=== PATIENT | female | born 1960 | race Hispanic/Latino ===

== ENCOUNTER 2020-10-19 13:29 | Emergency (ER) | payer OTHER, SELFPAY ==
[2020-10-19] MEDS ORDERED: SODIUM CHLORIDE 0.9% 1000ML 1,000 ML IV ONE (14:28)
[2020-10-19] MEDS ORDERED: ACETAMINOPHEN-CODEINE 300/30MG TAB ONE (14:28)
[2020-10-19 14:45] LABS: CREATININE 1.2 mg/dL (0.5-1.5); POTASSIUM 4.3 mmol/L (3.5-5.1)
[2020-10-19 14:49] LABS: ALBUMIN 3.5 g/dL (3.5-5.0); BILIRUBIN,TOTAL 0.1 mg/dL (0.2-1.0)
[2020-10-19 14:52] LABS: BASOPHILS % (AUTO) 0.3 % (0.0-5.0); EOSINOPHILS % (AUTO) 3.7 % (0.0-8.0); HEMATOCRIT 36.2 % (36-48); LYMPHOCYTES % (AUTO) 28.5 % (21.0-51.0); MEAN CORPUSCULAR HGB CONC 33.4 g/dL (32.0-36.0); MEAN CORPUSCULAR VOLUME 89.6 fL (79-99); NEUTROPHILS % (AUTO) 62.2 % (40.0-77.0); PLATELET COUNT (AUTO) 271 K/uL (130-400); RED BLOOD CELL COUNT(AUTO) 4.04 MIL/uL (4.00-5.50); RED CELL DISTRIBUTION WIDTH 12.9 % (11.0-15.5); WHITE BLOOD COUNT (AUTO) 9.6 K/uL (4.8-10.8)
[2020-10-19] MEDS ORDERED: IOHEXOL-350 50ML VIAL IV ONE (14:54)
== END 2020-10-19 16:48 | disposition home or self-care (01) ==
LOC: EDH 13:29
DX: R59.0 Localized enlarged lymph nodes (principal); M25.511 Pain in right shoulder; E13.65 Other specified diabetes mellitus with hyperglycemia
CPT/HCPCS: 36415; 70491; 73030; 80053; 85025; 96360; 96361; 99285; J7030; Q9967

== ENCOUNTER 2021-10-24 11:23 | Inpatient (IN) | payer OTHER ==
[~2021-10-24] VITALS: Ht 152.4 cm; Wt 100.6 kg
[2021-10-24] MEDS ORDERED: ACETAMINOPHEN 500 MG TABLET ONE (11:34)
[2021-10-24 12:24] LABS: BASOPHILS % (AUTO) 0.6 % (0.0-5.0); EOSINOPHILS % (AUTO) 0.5 % (0.0-8.0); HEMATOCRIT 41.7 % (36-48); LYMPHOCYTES % (AUTO) 13.8 % (21.0-51.0); MEAN CORPUSCULAR HEMOGLOBIN 28.9 pg (27.0-33.0); MEAN CORPUSCULAR HGB CONC 31.9 g/dL (32.0-36.0); MEAN CORPUSCULAR VOLUME 90.7 fL (79-99); MONOCYTES % (AUTO) 3.4 % (3.0-13.0); NEUTROPHILS % (AUTO) 81.5 % (40.0-77.0); PLATELET COUNT (AUTO) 284 K/uL (130-400); RED CELL DISTRIBUTION WIDTH 14.3 % (11.0-15.5); WHITE BLOOD COUNT (AUTO) 8.3 K/uL (4.8-10.8)
[2021-10-24 12:34] LABS: ALBUMIN 3.7 g/dL (3.5-5.0); BILIRUBIN,TOTAL 0.3 mg/dL (0.2-1.0); CREATININE 3.6 mg/dL (0.5-1.5); TOTAL PROTEIN, SERUM 8.9 g/dL (6.0-8.3)
[2021-10-24 12:46] LABS: CRP QUANTITATIVE 410.4 mg/L (0.00-9.0)
[2021-10-24] MEDS ORDERED: INSULIN HUMULIN R 100 UNIT/ML 3ML SQ ONE (13:00)
[2021-10-24] MEDS ORDERED: POTASSIUM BICARB/CIT AC 25 MEQ TABLET.EFF PO ONE (13:00)
[2021-10-24] MEDS ORDERED: LACTATED RINGERS 1000ML 1,000 ML IV ONE (13:00)
[2021-10-24] MEDS ORDERED: 0.9%NACL 1000ML 1,000 ML IV ONE ×2 (13:01→13:30)
[2021-10-24] MEDS ORDERED: ONDANSETRON 4MG INJ ONE (13:03)
[2021-10-24] MEDS ORDERED: ONDANSETRON 4MG INJ IVP ONE (13:30)
[2021-10-24] MEDS ORDERED: 0.9%NACL 1000ML 1,000 ML IV SCH (14:30)
[2021-10-24] MEDS ORDERED: LACTATED RINGERS 1000ML 1,000 ML IV SCH (14:30)
[2021-10-24 14:40] LABS: APPEARANCE,URINE Cloudy (CLEAR); BILIRUBIN,URINE Negative (NEGATIVE); COLOR,URINE Yellow (YELLOW); GLUCOSE, URINE (UA) 250 mg/dL (NEGATIVE); KETONES,URINE Negative (NEGATIVE); LEUKOCYTE ESTERASE ,URINE Moderate (NEGATIVE); NITRATE,URINE Negative (NEGATIVE); OCCULT BLOOD,URINE Negative (NEGATIVE); PROTEIN,URINE POS 2+ mg/dL (NEGATIVE); UROBILINOGEN,URINE 0.2 mg/dL (0.2-1.0)
[2021-10-24 14:58] LABS: RBC,URINE None Seen /HPF (0-1)
[2021-10-24 14:59] LABS: BACTERIA,URINE Few /HPF (None Seen)
[2021-10-24] MEDS ORDERED: 0.9%NACL 1000ML 909 ML IV ONE (15:00)
[2021-10-24] MEDS: ZOSYN 3.375GM +NS 50ML IV SCH (15:26)
[2021-10-24] MEDS ORDERED: HYDRALAZINE 20MG/ML VIAL IV PRN (15:30)
[2021-10-24] MEDS: 0.9%NACL 1000ML 1,000 ML IV SCH (15:30)
[2021-10-24] MEDS ORDERED: ACETAMINOPHEN 325 MG TAB PO PRN (15:30)
[2021-10-24] MEDS ORDERED: ONDANSETRON 4MG INJ IV PRN (15:30)
[2021-10-24] MEDS ORDERED: LIDOCAINE HCL-MPF 1% 2ML VIAL IV PRN (16:00)
[2021-10-24] MEDS ORDERED: POTASSIUM CHLORIDE 20MEQ/100ML 100 ML IV PRN (16:00)
[2021-10-24] MEDS ORDERED: MAGNESIUM 2GM PREMIX 50ML 50 ML IV PRN (16:00)
[2021-10-24] MEDS ORDERED: POTASSIUM CHLORIDE 10% ELIXIR 20 MEQ/15 ML UDCUP PO PRN (16:00)
[2021-10-24] MEDS: FAMOTIDINE 20MG VIAL IV SCH (16:16)
[2021-10-24 16:22] LABS: HEMOGLOBIN A1C 10.9 % (4.0-6.0)
[2021-10-24] MEDS: INSULIN HUMULIN R 100 UNIT/ML 3ML SQ SCH ×2 (16:26→20:42)
[2021-10-24 16:34] LABS: CREATININE 2.9 mg/dL (0.5-1.5); POTASSIUM 3.9 mmol/L (3.5-5.1)
[2021-10-24] MEDS ORDERED: INSULIN HUMULIN R 100 UNIT/ML 3ML SQ SCH (17:00)
[2021-10-24] MEDS: INSULIN GLARGINE 100 UNITS/ML 10 ML VIAL SQ SCH (20:42)
[2021-10-24] MEDS: METRONIDAZOLE 500MG/100ML BAG 100 ML IVPB SCH (20:45)
[2021-10-24] MEDS ORDERED: METRONIDAZOLE 500MG/100ML BAG 100 ML ONE (20:45)
[2021-10-25] MEDS: 0.9%NACL 1000ML 1,000 ML IV SCH ×3 (01:30→19:30)
[2021-10-25] MEDS: ZOSYN 3.375GM +NS 50ML IV SCH (02:00)
[2021-10-25] MEDS ORDERED: 0.9%NACL 50ML 50 ML IV ONE (04:54)
[2021-10-25] MEDS: METRONIDAZOLE 500MG/100ML BAG 100 ML IVPB SCH (07:24)
[2021-10-25] MEDS: INSULIN HUMULIN R 100 UNIT/ML 3ML SQ SCH ×4 (07:38→19:47)
[2021-10-25 08:12] LABS: HEMATOCRIT 36.7 % (36-48); MEAN CORPUSCULAR HEMOGLOBIN 28.5 pg (27.0-33.0); MEAN CORPUSCULAR HGB CONC 32.4 g/dL (32.0-36.0); MEAN CORPUSCULAR VOLUME 87.8 fL (79-99); RED BLOOD CELL COUNT(AUTO) 4.18 MIL/uL (4.00-5.50); WHITE BLOOD COUNT (AUTO) 5.9 K/uL (4.8-10.8)
[2021-10-25 08:26] LABS: CREATININE 2.2 mg/dL (0.5-1.5); POTASSIUM 3.2 mmol/L (3.5-5.1)
[2021-10-25] MEDS: FAMOTIDINE 20MG VIAL IV SCH (08:37)
[2021-10-25] MEDS ORDERED: ENOXAPARIN SODIUM 40 MG/0.4 ML SYRINGE SQ SCH (09:00)
[2021-10-25 09:10] LABS: CRP QUANTITATIVE 377.2 mg/L (0.00-9.0)
[2021-10-25] MEDS ORDERED: SODIUM BICARBONATE 650 MG TAB PO SCH (12:00)
[2021-10-25] MEDS: CEFTRIAXONE 2GM VIAL IVP SCH (13:35)
[2021-10-25] MEDS: SODIUM BICARBONATE 650 MG TAB PO SCH ×2 (13:35→19:46)
[2021-10-25] MEDS ORDERED: INSULIN HUMULIN R 100 UNIT/ML 3ML SQ SCH (17:00)
[2021-10-25] MEDS: INSULIN GLARGINE 100 UNITS/ML 10 ML VIAL SQ SCH (19:47)
[2021-10-25 22:15] VITALS: BP 94/52
[2021-10-25 23:36] VITALS: BP 94/52
[2021-10-26] MEDS ORDERED: LOSA100T58 PO (00:17)
[2021-10-26] MEDS ORDERED: INSU100I21 SQ (00:17)
[2021-10-26] MEDS ORDERED: ATOR10TA69 PO (00:17)
[2021-10-26] MEDS ORDERED: FLUO20TA29 PO (00:17)
[2021-10-26] MEDS ORDERED: METF-446 PO (00:17)
[2021-10-26 04:00] VITALS: BP 90/57
[2021-10-26] MEDS: KCL 20 MEQ ERTAB PO PRN ×4 (04:24→12:34)
[2021-10-26 06:17] LABS: BASOPHILS % (AUTO) 0.8 % (0.0-5.0); EOSINOPHILS % (AUTO) 0.2 % (0.0-8.0); HEMATOCRIT 37.7 % (36-48); LYMPHOCYTES % (AUTO) 11.8 % (21.0-51.0); MEAN CORPUSCULAR HEMOGLOBIN 28.8 pg (27.0-33.0); MEAN CORPUSCULAR HGB CONC 32.9 g/dL (32.0-36.0); MEAN CORPUSCULAR VOLUME 87.5 fL (79-99); MONOCYTES % (AUTO) 5.3 % (3.0-13.0); NEUTROPHILS % (AUTO) 81.3 % (40.0-77.0); PLATELET COUNT (AUTO) 248 K/uL (130-400); RED BLOOD CELL COUNT(AUTO) 4.31 MIL/uL (4.00-5.50); RED CELL DISTRIBUTION WIDTH 13.9 % (11.0-15.5); WHITE BLOOD COUNT (AUTO) 6.4 K/uL (4.8-10.8)
[2021-10-26 06:35] LABS: ALBUMIN 2.9 g/dL (3.5-5.0); BILIRUBIN,TOTAL 0.2 mg/dL (0.2-1.0); CREATININE 4.1 mg/dL (0.5-1.5); POTASSIUM 3.1 mmol/L (3.5-5.1); TOTAL PROTEIN, SERUM 7.1 g/dL (6.0-8.3)
[2021-10-26] MEDS: 0.9%NACL 1000ML 1,000 ML IV SCH ×3 (06:56→21:55)
[2021-10-26] MEDS: INSULIN HUMULIN R 100 UNIT/ML 3ML SQ SCH ×7 (07:30→21:00)
[2021-10-26 08:00] VITALS: BP 119/71
[2021-10-26] MEDS: SODIUM BICARBONATE 650 MG TAB PO SCH ×2 (08:27→21:52)
[2021-10-26] MEDS: FAMOTIDINE 20MG VIAL IV SCH (08:27)
[2021-10-26 09:48] LABS: CREATININE 4.5 mg/dL (0.5-1.5); POTASSIUM 3.3 mmol/L (3.5-5.1)
[2021-10-26 12:00] VITALS: BP 139/76
[2021-10-26] MEDS: DOXYCYCLINE 100MG+NS 250ML IV SCH (12:23)
[2021-10-26] MEDS: CEFTRIAXONE 2GM VIAL IVP SCH (12:34)
[2021-10-26 16:00] VITALS: BP 116/47
[2021-10-26 20:00] VITALS: BP 98/72
[2021-10-26] MEDS: INSULIN GLARGINE 100 UNITS/ML 10 ML VIAL SQ SCH ×2 (21:54→21:58)
[2021-10-27] VITALS (7 sets, daily range): BP systolic 122–145; BP diastolic 63–72
[2021-10-27] MEDS: DOXYCYCLINE 100MG+NS 250ML IV SCH (00:07)
[2021-10-27] MEDS: INSULIN HUMULIN R 100 UNIT/ML 3ML SQ SCH ×7 (05:27→21:00)
[2021-10-27 08:52] LABS: BASOPHILS % (AUTO) 0.3 % (0.0-5.0); EOSINOPHILS % (AUTO) 1.1 % (0.0-8.0); LYMPHOCYTES % (AUTO) 16.9 % (21.0-51.0); MEAN CORPUSCULAR HGB CONC 33.1 g/dL (32.0-36.0); MEAN CORPUSCULAR VOLUME 87.6 fL (79-99); MONOCYTES % (AUTO) 6.9 % (3.0-13.0); NEUTROPHILS % (AUTO) 73.7 % (40.0-77.0); PLATELET COUNT (AUTO) 228 K/uL (130-400); RED BLOOD CELL COUNT(AUTO) 4.11 MIL/uL (4.00-5.50); RED CELL DISTRIBUTION WIDTH 14.2 % (11.0-15.5); WHITE BLOOD COUNT (AUTO) 6.4 K/uL (4.8-10.8)
[2021-10-27 09:14] LABS: ALBUMIN 2.5 g/dL (3.5-5.0); BILIRUBIN,TOTAL 0.2 mg/dL (0.2-1.0); CREATININE 3.9 mg/dL (0.5-1.5); POTASSIUM 3.3 mmol/L (3.5-5.1); TOTAL PROTEIN, SERUM 7.1 g/dL (6.0-8.3)
[2021-10-27] MEDS: SODIUM BICARBONATE 650 MG TAB PO SCH ×2 (09:26→21:17)
[2021-10-27] MEDS: FAMOTIDINE 20MG VIAL IV SCH (09:26)
[2021-10-27] MEDS: CEFTRIAXONE 2GM VIAL IVP SCH (12:16)
[2021-10-27] MEDS: 0.9%NACL 1000ML 1,000 ML IV SCH (13:06)
[2021-10-27] MEDS: INSULIN GLARGINE 100 UNITS/ML 10 ML VIAL SQ SCH (17:25)
[2021-10-27] MEDS ORDERED: LIDOCAINE HCL-MPF 1% 2ML VIAL IV PRN (19:30)
[2021-10-27] MEDS ORDERED: POTASSIUM CHLORIDE 20MEQ/100ML 100 ML IV PRN (19:30)
[2021-10-27] MEDS ORDERED: POTASSIUM CHLORIDE 10% ELIXIR 20 MEQ/15 ML UDCUP PO PRN (19:30)
[2021-10-27] MEDS ORDERED: KCL 20 MEQ ERTAB PO PRN (19:30)
[2021-10-27] MEDS ORDERED: FLUOXETINE HCL PO SCH (21:00)
[2021-10-27] MEDS: ATORVASTATIN 10 MG TABLET PO SCH (21:17)
[2021-10-28 04:10] VITALS: BP 121/73
[2021-10-28] MEDS: INSULIN HUMULIN R 100 UNIT/ML 3ML SQ SCH ×7 (07:21→20:58)
[2021-10-28 08:00] VITALS: BP 116/63
[2021-10-28] MEDS ORDERED: LEVO750T46 PO (09:12)
[2021-10-28] MEDS: SODIUM BICARBONATE 650 MG TAB PO SCH ×2 (09:50→20:58)
[2021-10-28] MEDS: FAMOTIDINE 20MG VIAL IV SCH (09:50)
[2021-10-28] MEDS: CEFTRIAXONE 2GM VIAL IVP SCH (09:55)
[2021-10-28 11:30] VITALS: BP 132/72
[2021-10-28] MEDS: INSULIN GLARGINE 100 UNITS/ML 10 ML VIAL SQ SCH (14:06)
[2021-10-28 16:00] VITALS: BP 131/67
[2021-10-28] MEDS ORDERED: PHARMACY COMMUNICATION MISC SCH (16:30)
[2021-10-28] MEDS ORDERED: LOPERAMIDE HCL 2 MG CAP PO ONE (17:15)
[2021-10-28 20:18] VITALS: BP 109/64
[2021-10-28] MEDS: ATORVASTATIN 10 MG TABLET PO SCH (20:58)
[2021-10-29 03:46] VITALS: BP 111/63
[2021-10-29 04:13] LABS: BASOPHILS % (AUTO) 0.8 % (0.0-5.0); EOSINOPHILS % (AUTO) 4.9 % (0.0-8.0); HEMATOCRIT 36.8 % (36-48); LYMPHOCYTES % (AUTO) 35.2 % (21.0-51.0); MEAN CORPUSCULAR HEMOGLOBIN 28.5 pg (27.0-33.0); MEAN CORPUSCULAR HGB CONC 32.9 g/dL (32.0-36.0); MEAN CORPUSCULAR VOLUME 86.8 fL (79-99); MONOCYTES % (AUTO) 7.9 % (3.0-13.0); NEUTROPHILS % (AUTO) 49.1 % (40.0-77.0); PLATELET COUNT (AUTO) 294 K/uL (130-400); RED BLOOD CELL COUNT(AUTO) 4.24 MIL/uL (4.00-5.50); RED CELL DISTRIBUTION WIDTH 13.9 % (11.0-15.5); WHITE BLOOD COUNT (AUTO) 7.3 K/uL (4.8-10.8)
[2021-10-29 04:44] LABS: BILIRUBIN,TOTAL 0.1 mg/dL (0.2-1.0); CREATININE 2.2 mg/dL (0.5-1.5); POTASSIUM 3.4 mmol/L (3.5-5.1); TOTAL PROTEIN, SERUM 7.1 g/dL (6.0-8.3)
[2021-10-29 04:45] LABS: ALBUMIN 2.6 g/dL (3.5-5.0)
[2021-10-29] MEDS: INSULIN HUMULIN R 100 UNIT/ML 3ML SQ SCH ×6 (06:33→17:01)
[2021-10-29 07:40] VITALS: BP 102/70
[2021-10-29] MEDS: SODIUM BICARBONATE 650 MG TAB PO SCH (09:19)
[2021-10-29] MEDS: FAMOTIDINE 20MG VIAL IV SCH (09:19)
[2021-10-29] MEDS: CEFTRIAXONE 2GM VIAL IVP SCH (09:19)
[2021-10-29 11:30] VITALS: BP 112/68
[2021-10-29] MEDS ORDERED: BALS60OI TP (12:03)
[2021-10-29] MEDS ORDERED: LOPERAMIDE HCL 2 MG CAP PO ONE (14:15)
[2021-10-29] MEDS: INSULIN GLARGINE 100 UNITS/ML 10 ML VIAL SQ SCH (14:19)
[2021-10-29] MEDS: KCL 20 MEQ ERTAB PO PRN ×2 (14:28→14:29)
[2021-10-29 15:25] VITALS: BP 104/64
== END 2021-10-29 17:05 | disposition home or self-care (01) | DRG 871 ==
LOC: EDH 11:23 → EDHIP 11:24 → UNDOADMIN 11:24 → INTOOBSV 15:08 → EDHIP 15:08 → OBSVTOIN 15:08 → 4CH 10-25 19:55
PROVIDERS: ADMIT Internal Medicine; ATTEND Internal Medicine
DX: A41.50 Gram-negative sepsis, unspecified (principal); N17.0 Acute kidney failure with tubular necrosis; N12 Tubulo-interstitial nephritis, not specified as acute or chronic; A09 Infectious gastroenteritis and colitis, unspecified; A02.9 Salmonella infection, unspecified; I12.9 Hypertensive chronic kidney disease with stage 1 through stage 4 chronic kidney disease, or unspecified chronic kidney disease; Z68.31 Body mass index [BMI] 31.0-31.9, adult; Z20.822 Contact with and (suspected) exposure to COVID-19; F32.A Depression, unspecified; E78.5 Hyperlipidemia, unspecified; N18.9 Chronic kidney disease, unspecified; E86.1 Hypovolemia; E86.0 Dehydration; E87.6 Hypokalemia; E11.22 Type 2 diabetes mellitus with diabetic chronic kidney disease; E11.65 Type 2 diabetes mellitus with hyperglycemia; E66.9 Obesity, unspecified; E78.00 Pure hypercholesterolemia, unspecified; E87.8 Other disorders of electrolyte and fluid balance, not elsewhere classified; Z79.4 Long term (current) use of insulin; Z79.84 Long term (current) use of oral hypoglycemic drugs; Z83.3 Family history of diabetes mellitus
CPT/HCPCS: 36415; 71045; 74176; 76770; 80048; 80053; 81001; 82010; 82948; 83036; 83605; 84132; 84145; 85025; 85027; 86140; 87040; 87046; 87077; 87088; 87186; 87324; 87507; 87635; 87804; 87880; 93005; 97039; 99291; C9803; G0378; J0696; J1650; J1815; J2405; J2543; J3490; J7030; J7120